=== PATIENT | male | born 1985 | race Two or more races ===

== ENCOUNTER 2018-11-24 23:47 | Emergency (ER) | payer MEDICAID ==
[~2018-11-24] VITALS: Ht 177.8 cm; Wt 64.6 kg
[2018-11-24 23:49] VITALS: BP 110/74
[2018-11-25] MEDS ORDERED: BUPIVACAINE 0.25% ONE (00:20)
[2018-11-25] MEDS ORDERED: KETOROLAC 60 MG/2 ML ONE (00:23)
[2018-11-25] MEDS ORDERED: BUPIVACAINE 0.25% INFIL ONE (00:30)
[2018-11-25] MEDS ORDERED: KETOROLAC 30 MG/1 ML IM ONE (00:30)
--- NOTE | 2018-11-25 00:37 | NUR ---
PT REFUSING TORADOL AT THIS TIME. DR. CLARKE NOTIFIED.
--- NOTE | 2018-11-25 02:49 | NUR ---
PT D/C WITH D/C SUMMARY AND SCRIPTS. ALL QUESTIONS ANSWERED. PT AMBULATES TO REGISTRATION DESK WITH STEADY GAIT FOR D/C HOME. PT DENIES ANY OTHER NEEDS PERTAINING TO THIS VISIT.
== END 2018-11-25 02:53 | disposition home or self-care (01) ==
LOC: ED 11-25 02:30
DX: M79.645 Pain in left finger(s) (principal); R23.4 Changes in skin texture; Z72.89 Other problems related to lifestyle
CPT/HCPCS: 64450; 99284

== ENCOUNTER 2018-12-01 13:59 | Emergency (ER) | payer MEDICAID ==
[~2018-12-01] VITALS: Ht 177.8 cm; Wt 62.6 kg
[2018-12-01 14:10] VITALS: BP 114/75
[2018-12-01] MEDS ORDERED: ACETAMINOPHEN 500 MG TABLET PO ONE (15:30)
[2018-12-01] MEDS ORDERED: ACETAMINOPHEN 500 MG TABLET ONE (15:31)
[2018-12-01] MEDS ORDERED: LIDOCAINE-MPF 1%, 5ML ONE (15:56)
[2018-12-01] MEDS ORDERED: LIDOCAINE-MPF 1%, 5ML INFIL ONE (16:00)
== END 2018-12-01 17:09 | disposition home or self-care (01) ==
LOC: ED 16:33
DX: S63.286A Dislocation of proximal interphalangeal joint of right little finger, initial encounter (principal); X58.XXXA Exposure to other specified factors, initial encounter; Y93.89 Activity, other specified; Y92.009 Unspecified place in unspecified non-institutional (private) residence as the place of occurrence of the external cause; Y99.8 Other external cause status
CPT/HCPCS: 26770; 99284

== ENCOUNTER 2019-04-21 16:15 | Emergency (ER) | payer MEDICAID ==
[~2019-04-21] VITALS: Ht 177.8 cm; Wt 63.5 kg
--- NOTE | 2019-04-21 16:36 | NUR ---
THIS IS A 34 YO MALE COMING IN FOR LEFT WRIST SCAB WITH REDNESS AND BLANCHING IN THE CENTER X1 WEEK, WITH A SIMILAR SCAB/PUSTULE STARTING TODAY THAT HAS THREE STREAK HATHAWAY. THERE IS A SMALL SCAB/LAC ON LEFT INDEX FINGER. 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 PT DENIES IV DRUG USE, WHEN ASKED IF [facility]ATIE DOES RECREATIONAL DRUG, PATIENT STATED "I DO ALL OF THEM EXCEPT SHROOMS, BUT NOT ALL THE TIME". PATIENT IS CURRENTLY UNDER THE INFLUENCE OF MARIJUANA. DENIES ANY MEDICAL HX, BUT WAS SEEN HERE ABOUT A MONTH AGO FOR SIMILAR PROBLEM, BUT DID NOT REAL ESTATE LEASING AGENT ABX PRESCRIPTION. PATIENT PLACED ON CONTINUOUS SPO2 AT 95%, CYCLE BP Q1HR. CALL LIGHT IN BED, DENIES FURTHER NEEDS AT THIS TIME.
[2019-04-21 16:56] LABS: MEAN CORPUSCULAR HEMOGLOBIN 30.3 pg (27.5-34.5); MEAN CORPUSCULAR HGB CONC 32.5 g/dL (33.2-36.2); MEAN CORPUSCULAR VOLUME 93.2 fL (81-97); MEAN PLATELET VOLUME 7.4 fL (7.4-10.4); PLATELET COUNT 363 x10^3/uL (130-400); RED BLOOD COUNT 4.82 x10^6/uL (4.38-5.82); RED CELL DISTRIBUTION WIDTH 14.4 % (9.4-14.8)
[2019-04-21] MEDS ORDERED: DIPH,PERTUSS(ACELL),TET VAC/PF 0.5 ML IM-VACC ONE ×2 (16:58→17:00)
[2019-04-21] MEDS ORDERED: SULFAMETH./TRIMETHOPRIM DS 800MG/160MG TABLET ONE (16:58)
[2019-04-21] MEDS ORDERED: SULFAMETH./TRIMETHOPRIM DS 800MG/160MG TABLET PO ONE (17:00)
[2019-04-21 17:02] LABS: BASOPHILS # (AUTO) 0.03 x10^3/uL (0-0.1); BASOPHILS % (AUTO) 0 % (0-1); EOSINOPHILS # (AUTO) 0.05 x10^3/uL (0-0.4); EOSINOPHILS % (AUTO) 0 % (1-7); LYMPHOCYTES # (AUTO) 1.86 x10^3/uL (1-3.4); LYMPHOCYTES % (AUTO) 10 % (22-44); MD NO; MONOCYTES # (AUTO) 1.15 x10^3/uL (0.2-0.8); MONOCYTES % (AUTO) 6 % (2-9); NEUTROPHILS # (AUTO) 16.53 x10^3/uL (1.8-6.8); NEUTROPHILS % (AUTO) 84 % (42-75)
[2019-04-21 17:06] LABS: ALBUMIN 3.9 g/dL (3.4-5.0); ANION GAP 3 mmol/L (5-15); CALCIUM 9.1 mg/dL (8.5-10.1); CHLORIDE 105 mmol/L (98-107); CREATININE 0.86 mg/dL (0.7-1.3)
[2019-04-21 17:38] VITALS: BP 127/80
== END 2019-04-21 17:50 | disposition home or self-care (01) ==
LOC: ED 17:26
DX: L03.114 Cellulitis of left upper limb (principal); Z87.19 Personal history of other diseases of the digestive system; Z72.9 Problem related to lifestyle, unspecified
CPT/HCPCS: 36415; 80048; 82040; 85025; 90471; 90715; 99283

== ENCOUNTER 2019-05-30 20:27 | Emergency (ER) | payer MEDICAID ==
[~2019-05-30] VITALS: Ht 177.8 cm; Wt 62.6 kg
--- NOTE | 2019-05-30 21:24 | NUR ---
THIS IS A 34Y M THAT COMES IN TONIGHT FOR REDNESS AND SELLING ON HIS L CALF. PT STS THESE WOUNDS KEEP SHOWING UP (GESTURING TO RIGHT KNEE AND 1ST FINGER RIGHT HAND) PT STS THIS HAPPENED ABOUT A MONTH AGO AND HE TOOK ALL OF THE MEDS PRESCRIBED. PT CONNECTED TO MONITORING, VSS, NADN. CALL LIGHT IN REACH
[2019-05-30] MEDS ORDERED: LIDOCAINE-MPF 1%, 5ML INFIL ONE (21:30)
[2019-05-30] MEDS ORDERED: SULFAMETH./TRIMETHOPRIM DS 800MG/160MG TABLET ONE (21:35)
[2019-05-30] MEDS ORDERED: CEPHALEXIN 500 MG CAPSULE ONE (21:35)
[2019-05-30] MEDS ORDERED: LIDOCAINE-MPF 1%, 5ML ONE ×2 (21:35→21:40)
[2019-05-30 21:38] VITALS: BP 117/57
--- NOTE | 2019-05-30 21:45 | NUR ---
MD TO BEDSIDE.
[2019-05-30] MEDS ORDERED: CEPHALEXIN 500 MG CAPSULE PO ONE (22:00)
[2019-05-30] MEDS ORDERED: SULFAMETH./TRIMETHOPRIM DS 800MG/160MG TABLET PO ONE (22:00)
[2019-05-30] MEDS ORDERED: DIPH,PERTUSS(ACELL),TET VAC/PF 0.5 ML IM-VACC ONE (22:00)
== END 2019-05-30 22:18 | disposition home or self-care (01) ==
LOC: ED 21:11
DX: L02.511 Cutaneous abscess of right hand (principal); L02.416 Cutaneous abscess of left lower limb; F17.200 Nicotine dependence, unspecified, uncomplicated; Z72.9 Problem related to lifestyle, unspecified
CPT/HCPCS: 10061; 99284

== ENCOUNTER 2019-06-02 00:37 | Inpatient (IN) | payer MEDICAID ==
[~2019-06-02] VITALS: Ht 177.8 cm; Wt 63.8 kg
[2019-06-02] MEDS ORDERED: KEFLEX PO (00:44)
[2019-06-02] MEDS ORDERED: BACTRIM PO (00:44)
[2019-06-02] MEDS ORDERED: OXYcodone/APAP 5/325MG TABLET PO ONE (01:00)
[2019-06-02] MEDS ORDERED: VANCOMYCIN PER PHARMACY MC ONE (01:00)
[2019-06-02] MEDS ORDERED: CEFAZOLIN PMX 1GM/50ML 50 ML IVPB ONE (01:00)
[2019-06-02] MEDS ORDERED: SODIUM CHLORIDE FLUSH 10ML SYR IVF ONE (01:00)
[2019-06-02 01:09] LABS: BASOPHILS # (AUTO) 0.03 x10^3/uL (0-0.1); BASOPHILS % (AUTO) 0 % (0-1); EOSINOPHILS # (AUTO) 0.14 x10^3/uL (0-0.4); EOSINOPHILS % (AUTO) 1 % (1-7); LYMPHOCYTES # (AUTO) 1.91 x10^3/uL (1-3.4); LYMPHOCYTES % (AUTO) 18 % (22-44); MD NO; MEAN CORPUSCULAR HEMOGLOBIN 30.3 pg (27.5-34.5); MEAN CORPUSCULAR HGB CONC 33.3 g/dL (33.2-36.2); MEAN CORPUSCULAR VOLUME 91.1 fL (81-97); MEAN PLATELET VOLUME 7.3 fL (7.4-10.4); MONOCYTES # (AUTO) 1.03 x10^3/uL (0.2-0.8); MONOCYTES % (AUTO) 10 % (2-9); NEUTROPHILS % (AUTO) 71 % (42-75); PLATELET COUNT 323 x10^3/uL (130-400); RED BLOOD COUNT 4.48 x10^6/uL (4.38-5.82); RED CELL DISTRIBUTION WIDTH 14.4 % (9.4-14.8)
[2019-06-02 01:20] LABS: ALBUMIN 3.6 g/dL (3.4-5.0); ANION GAP 4 mmol/L (5-15); CALCIUM 8.8 mg/dL (8.5-10.1); CHLORIDE 109 mmol/L (98-107); CREATININE 0.99 mg/dL (0.7-1.3)
[2019-06-02] MEDS ORDERED: VANCOMYCIN 1,200 MG in SODIUM CHLORIDE 0.9% 250 ML IV ONE (01:30)
[2019-06-02] MEDS ORDERED: CEFAZOLIN PMX 1GM/50ML 50 ML ONE (01:32)
[2019-06-02] MEDS ORDERED: OXYcodone/APAP 5/325MG TABLET ONE (01:32)
[2019-06-02 03:04] VITALS: BP 111/54
[2019-06-02] MEDS ORDERED: ACETAMINOPHEN 325 MG TABLET PO PRN (03:30)
[2019-06-02] MEDS ORDERED: LABETALOL 5MG/ML, 20ML IVPush PRN (03:30)
[2019-06-02] MEDS ORDERED: ONDANSETRON 2MG/ML, 2ML IVPush PRN (03:30)
[2019-06-02] MEDS ORDERED: HYDROcodone/APAP 5/325 TABLET PO PRN (03:30)
[2019-06-02] MEDS ORDERED: VANCOMYCIN PER PHARMACY MC PRN (03:30)
[2019-06-02] MEDS ORDERED: PHARMACOKINETIC CONSULTATION MC ONE (03:30)
[2019-06-02] MEDS ORDERED: PHARMACOKINETIC MONITORING MC PRN (03:30)
[2019-06-02] MEDS ORDERED: KETOROLAC 30 MG/1 ML IV PRN (03:30)
[2019-06-02] MEDS: NICOTINE 7 MG/24 HR PATCH.TD24 TD SCH (04:05)
[2019-06-02] MEDS: AMPICILLIN/SULBACTAM 3 GM in SODIUM CHLORIDE 0.9% 100 ML IV SCH ×4 (04:05→23:42)
[2019-06-02 06:45] VITALS: BP 104/59
[2019-06-02] MEDS: SENNA/DOCUSATE TABLET PO SCH ×2 (09:00→11:46)
[2019-06-02 13:48] VITALS: BP 120/69
[2019-06-02] MEDS: VANCOMYCIN 1,200 MG in SODIUM CHLORIDE 0.9% 250 ML IV SCH (15:28)
[2019-06-02 20:56] VITALS: BP 117/67
[2019-06-03 00:23] VITALS: BP 103/63
[2019-06-03] MEDS: VANCOMYCIN 1,200 MG in SODIUM CHLORIDE 0.9% 250 ML IV SCH (01:58)
[2019-06-03] MEDS: NICOTINE 7 MG/24 HR PATCH.TD24 TD SCH (03:28)
[2019-06-03] MEDS: AMPICILLIN/SULBACTAM 3 GM in SODIUM CHLORIDE 0.9% 100 ML IV SCH (05:37)
[2019-06-03 05:55] LABS: CALCIUM 8.8 mg/dL (8.5-10.1); CHLORIDE 110 mmol/L (98-107)
[2019-06-03 05:58] LABS: ANION GAP 5 mmol/L (5-15); BASOPHILS # (AUTO) 0.06 x10^3/uL (0-0.1); BASOPHILS % (AUTO) 1 % (0-1); CREATININE 0.95 mg/dL (0.7-1.3); EOSINOPHILS # (AUTO) 0.16 x10^3/uL (0-0.4); EOSINOPHILS % (AUTO) 3 % (1-7); LYMPHOCYTES # (AUTO) 2.23 x10^3/uL (1-3.4); LYMPHOCYTES % (AUTO) 35 % (22-44); MD NO; MEAN CORPUSCULAR HEMOGLOBIN 30.1 pg (27.5-34.5); MEAN CORPUSCULAR HGB CONC 32.5 g/dL (33.2-36.2); MEAN CORPUSCULAR VOLUME 92.6 fL (81-97); MEAN PLATELET VOLUME 7.6 fL (7.4-10.4); MONOCYTES # (AUTO) 0.63 x10^3/uL (0.2-0.8); MONOCYTES % (AUTO) 10 % (2-9); NEUTROPHILS # (AUTO) 3.35 x10^3/uL (1.8-6.8); NEUTROPHILS % (AUTO) 52 % (42-75); PLATELET COUNT 332 x10^3/uL (130-400); RED CELL DISTRIBUTION WIDTH 14.6 % (9.4-14.8)
[2019-06-03 07:18] VITALS: BP 106/63
== END 2019-06-03 12:58 | disposition home or self-care (01) | DRG 603 ==
LOC: ED 01:37 → EDIP 01:45 → 3N 02:45 → DCLOUNGE 06-03 12:48
PROVIDERS: ADMIT Family Medicine; ATTEND Family Medicine
DX: L03.116 Cellulitis of left lower limb (principal); F12.10 Cannabis abuse, uncomplicated; F14.10 Cocaine abuse, uncomplicated; F17.200 Nicotine dependence, unspecified, uncomplicated; F10.10 Alcohol abuse, uncomplicated; Z71.6 Tobacco abuse counseling
CPT/HCPCS: 36415; 80048; 82040; 85025; 87070; 87147; 87205; G0378; J0295; J0690; J3370; J7050

== ENCOUNTER 2020-03-24 20:08 | Emergency (ER) | payer MEDICAID ==
[~2020-03-24] VITALS: Ht 172.7 cm; Wt 68.0 kg
[~2020-03-24 20:08] MED LIST: BACTRIM PO; KEFLEX PO
[2020-03-24 20:17] VITALS: BP 126/63
== END 2020-03-24 21:32 | disposition home or self-care (01) ==
LOC: ED 21:20
DX: S90.31XA Contusion of right foot, initial encounter (principal); X58.XXXA Exposure to other specified factors, initial encounter; Y93.89 Activity, other specified; Y92.009 Unspecified place in unspecified non-institutional (private) residence as the place of occurrence of the external cause; Y99.8 Other external cause status
CPT/HCPCS: 99283

== ENCOUNTER 2020-10-02 03:02 | Emergency (ER) | payer MEDICAID ==
[~2020-10-02] VITALS: Ht 177.8 cm; Wt 62.0 kg
[2020-10-02 03:05] VITALS: BP 109/70
== END 2020-10-02 03:34 | disposition home or self-care (01) ==
LOC: ED 03:20
DX: L02.415 Cutaneous abscess of right lower limb (principal); F17.210 Nicotine dependence, cigarettes, uncomplicated
CPT/HCPCS: 10060; 99406